=== PATIENT | female | born 2000 | race Caucasian/White ===

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

== ENCOUNTER → 2019-04-05 | Outpatient (REF) | payer BC ==
[~2019-04-05] MED LIST: DOXY100C37 PO
[2019-04-05 13:20] LABS: HEMATOCRIT 38.7 % (36.0-47.0); HEMOGLOBIN 12.7 g/dl (12.0-15.5); MEAN CORPUSCULAR HEMOGLOBIN 27.2 pg (27.0-33.0); MEAN CORPUSCULAR HGB CONC 32.8 g/dl (32.0-36.5); MEAN CORPUSCULAR VOLUME 82.9 fl (80.0-96.0); PLATELET COUNT, AUTOMATED 370 10^3/uL (150-450); RED BLOOD COUNT 4.67 10^6/uL (4.00-5.40); WHITE BLOOD COUNT 6.8 10^3/uL (4.0-10.0)
[2019-04-05 13:58] LABS: HCG, SERUM QUANTITATIVE 55208 MIU/ML
[2019-04-06 09:26] LABS: RUBELLA IgG QUALITATIVE IMMUNE (IMMUNE)
[2019-04-06 09:54] LABS: HEPATITIS C VIRUS ABY INDEX < 0.0 INDEX (<0.8)
[2019-04-06 09:55] LABS: HIV 1&2 SCREEN CENTAUR NEGATIVE (NEGATIVE)
== END ==
LOC: M LAB REF 12:16
PROVIDERS: ATTEND Obstetrics & Gynecology
DX: Z32.01 Encounter for pregnancy test, result positive (principal)

== ENCOUNTER → 2019-04-11 | Outpatient (CLI) | payer BC ==
--- NOTE | 2019-04-11 08:52 | REP ---
First trimester obstetric ultrasound for dating and viability: There is a single intrauterine gestational sac with a pole. The heart rate is 179 beats per minute. The pole crown-rump length is 1.4 cm. This corresponds to a gestational age of 7 weeks 5 days/[facility] 11/23/2019. Gestational age by LMP is 9 weeks 0 days/[facility] 11/14/2019. There is no subchorionic hematoma. The maternal adnexa and cul-de-sac demonstrate a right ovarian cyst, likely a corpus luteum. No free fluid in the pelvis. Electronically Signed by Waldemar Schmitt MD 04/11/2019 08:43 A
== END ==
LOC: M RAD 07:29
PROVIDERS: ATTEND Obstetrics & Gynecology
DX: O36.80X0 Pregnancy with inconclusive fetal viability, not applicable or unspecified (principal); Z36.89 Encounter for other specified antenatal screening; Z3A.01 Less than 8 weeks gestation of pregnancy

== ENCOUNTER → 2019-06-20 | Outpatient (CLI) | payer OTHER | LOC: M LAB 09:11 | PROVIDERS: ATTEND Advanced Practice Midwife | DX: Z34.01 Encounter for supervision of normal first pregnancy, first trimester (principal) ==

== ENCOUNTER → 2019-06-28 | Outpatient (CLI) | payer OTHER ==
--- NOTE | 2019-06-29 03:03 | REP ---
Clinical: Anatomical evaluation. Comparison: 04/11/2019 . Findings: Examination demonstrates a single live intrauterine in variable presentation. motion is identified by technologist. Placenta is noted posterior and grade I without evidence for placenta previa or abruption. Amniotic fluid volume is normal. Cervix measures 3.9 cm in length and appears closed. No evidence for nuchal cord. Gestational age by first US 18 weeks 6 days with [facility] 11/23/2019 . Gestational age by current measurements 18 weeks 5 days' with [facility] 11/24/2019 . FHR equals 161 beats per minute. BPD 4.2 cm 18 weeks 1 day HC 15.6 cm 18 weeks 3 days AC 13.3 cm 18 weeks 5 days FL 3.1 cm 19 weeks 3 days HL 3.1 cm 20 weeks 1 day HC/AC ratio 1.17 Estimated weight 269 grams ( 55th percentile). Anatomical assessment demonstrates normal structures including cranium, choroid plexus, cavum, cerebellum/posterior fossa, facial features, lungs, cardiac ventricular outflow tracts, diaphragm, stomach, cord insertion/three-vessel cord, kidneys/bladder, spine, and extremities. Impression: Single live intrauterine in variable presentation demonstrating appropriate estimated weight and growth. Limited evaluation of the heart. Remainder of the anatomical assessment is complete and normal.
== END ==
LOC: M WHC 08:01
PROVIDERS: ATTEND Advanced Practice Midwife
DX: Z36.89 Encounter for other specified antenatal screening (principal); Z3A.18 18 weeks gestation of pregnancy

== ENCOUNTER → 2019-08-05 | Outpatient (CLI) | payer OTHER ==
[~2019-08-05] MED LIST changes: +PRENTAB9 PO
--- NOTE | 2019-08-05 09:33 | REP ---
Clinical: Anatomical evaluation. Comparison: 06/28/2019 . Findings: Examination demonstrates a single live intrauterine in breech presentation. motion is identified by technologist. Placenta is noted posterior and grade I without evidence for placenta previa or abruption. Amniotic fluid volume is normal. Cervix measures 3.7 cm in length and appears closed. No evidence for nuchal cord. Gestational age by first US 24 weeks 2 days with [facility] 11/23/2019. Gestational age by current measurements 23 weeks 6 days with [facility] 11/26/2019 . FHR equals 135 beats per minute. Estimated weight 673 grams ( 44th percentile). Anatomical assessment demonstrates normal structures including cranium, four-chamber heart/ventricular outflow tracts, diaphragm, stomach, cord insertion/three-vessel cord, kidneys/bladder, and spine. Echogenic focus within the right cardiac ventricle likely prominent chordae tendineae. Impression: 1. Single live intrauterine in breech presentation demonstrating appropriate interval growth. 2. Echogenic focus in the right cardiac ventricle likely prominent chordae tendineae. Remainder of the anatomical assessment is complete and normal.
== END ==
LOC: M WHC 08:29
PROVIDERS: ATTEND Advanced Practice Midwife
DX: O32.1XX0 Maternal care for breech presentation, not applicable or unspecified (principal); Z36.2 Encounter for other antenatal screening follow-up; Z3A.24 24 weeks gestation of pregnancy

== ENCOUNTER → 2019-08-16 | Outpatient (REF) | payer OTHER ==
[~2019-08-16] MED LIST changes: -PRENTAB9 PO
[2019-08-16 11:58] LABS: HEMATOCRIT 36.2 % (36.0-47.0); HEMOGLOBIN 11.5 g/dl (12.0-15.5); MEAN CORPUSCULAR HEMOGLOBIN 27.2 pg (27.0-33.0); MEAN CORPUSCULAR HGB CONC 31.8 g/dl (32.0-36.5); MEAN CORPUSCULAR VOLUME 85.6 fl (80.0-96.0); PLATELET COUNT, AUTOMATED 343 10^3/uL (150-450); RED BLOOD COUNT 4.23 10^6/uL (4.00-5.40); WHITE BLOOD COUNT 9.5 10^3/uL (4.0-10.0)
== END ==
LOC: M PLALAB 08:23
PROVIDERS: ATTEND Advanced Practice Midwife
DX: Z34.02 Encounter for supervision of normal first pregnancy, second trimester (principal)

== ENCOUNTER 2019-10-16 22:10 | Outpatient (CLI) | payer OTHER ==
[~2019-10-16] VITALS: Ht 165.1 cm; Wt 95.4 kg
[2019-10-16 22:30] VITALS: BP 125/71
[2019-10-16] MEDS ORDERED: ACETAMINOPHEN 500 MG TAB PO ONE (22:45)
[2019-10-16 23:39] LABS: AMORPHOUS SEDIMENT SMALL (NEGATIVE); APPEARANCE, URINE HAZY (CLEAR); BACTERIA, URINE AUTO 1+ (NEGATIVE); BILIRUBIN, URINE AUTO NEGATIVE (NEGATIVE); BLOOD, URINE BLOOD NEGATIVE (NEGATIVE); COLOR, URINE YELLOW (YELLOW); GLUCOSE, URINE (UA) AUTO NEGATIVE (NEGATIVE); KETONE, URINE AUTO NEGATIVE (NEGATIVE); LEUKOCYTE ESTERASE, URINE AUTO TRACE (NEGATIVE); MUCUS, URINE SMALL (NEGATIVE); NITRITE, URINE AUTO NEGATIVE (NEGATIVE); PROTEIN, URINE AUTO 1+ mg/dL (NEGATIVE); RBC, URINE AUTO 4 /HPF (0-3); SPECIFIC GRAVITY URINE AUTO 1.011 (1.002-1.035); SQUAMOUS EPITHELIAL CELL UR AU 2 /HPF (0-6); TRANSITIONAL EPITHELIAL AUTO 1 /HPF; WBC, URINE AUTO 22 /HPF (0-3)
[2019-10-16] MEDS ORDERED: oxyCODONE 5MG TAB As Ordered ONE (23:58)
[2019-10-17] MEDS ORDERED: oxyCODONE 5MG TAB PO ONE
[2019-10-17 01:13] VITALS: BP 101/60
== END 2019-10-17 01:40 | disposition home or self-care (01) ==
LOC: M LDO 22:10
PROVIDERS: ATTEND Specialist
DX: O36.8130 Decreased fetal movements, third trimester, not applicable or unspecified (principal); Z3A.34 34 weeks gestation of pregnancy; R10.9 Unspecified abdominal pain

== ENCOUNTER → 2019-10-31 | Outpatient (REF) | payer OTHER ==
[~2019-10-31] MED LIST changes: +PRENTAB9 PO
== END ==
LOC: M SFHCLERA 17:05
PROVIDERS: ATTEND Specialist
DX: Z34.03 Encounter for supervision of normal first pregnancy, third trimester (principal); Z3A.00 Weeks of gestation of pregnancy not specified

== ENCOUNTER 2019-11-30 18:02 | Inpatient (IN) | payer OTHER ==
[~2019-11-30] VITALS: Ht 167.6 cm; Wt 96.5 kg
[~2019-11-30 18:02] MED LIST changes: -PRENTAB9 PO
[2019-11-30] MEDS ORDERED: PRENTAB9 PO (18:13)
[2019-11-30] MEDS ORDERED: miSOPROStol 50 MCG 1/2 TAB (S0191) PO ONE (18:45)
[2019-11-30 19:08] VITALS: BP 119/67
--- NOTE | 2019-11-30 19:14 | HPEPDOC ---
Text Note Date of Service The patient was seen on 11/30/19. NOTE History & Physical S: 19 y/o @41 0/7 weeks gestation with an EDC of 11/23/2019 confirmed by 1 st trimester ultrasound. Pt presents to L&D for IOL. Pt denies contractions, LOF, or vaginal bleeding. Fetus is active. PNCare: initiated in 1st trimester and adequate. PNCourse: uncomplicated. OBHx: 1. Current OBLabs: A positive, negative antibody screen, HIV-, HepBsAg-, HepC-, RPR non-reactive, Rubella immune, GC/CT-, Urine c/s-, GDS 120, GBS-. Past Medical Hx: non-contributory. Past Surgical Hx: tympanostomy. Family Hx: diabetes. Social Hx: Pt is single, FOB involved and supportive at the bedside, non-smoker, denies ETOH, denies drug use, denies hx of STDs, denies hx of abuse. Allergies: NKDA. Current medications: PNV. O: BP 116/69 P 95 RR 16 T 97.8F A+O x3, abdomen gravid. FHR 110 moderate variability + accels no decels, no contractions. SVE 1/50/-3, moderate, posterior. Cephalic presentation. EFW 7-7.5 lbs A: IUP @ 41 0/7 weeks, FHR category I P: Admit to L&D for IOL. Risks, benefits, alternatives reviewed to IOL. All questions answered. Pt desires IOL. Regular diet, OOB ad alhaji, saline lock, and routine labs. Misoprostol for cervical ripening. Verbally consented for emergency surgery and blood products PRN. Anticipate ripening and labor. ANETA SHUKLA CNM Nov 30, 2019 19:14
[2019-11-30 20:22] VITALS: BP 98/56
[2019-11-30 20:29] LABS: HEMATOCRIT 33.7 % (36.0-47.0); HEMOGLOBIN 10.2 g/dl (12.0-15.5); MEAN CORPUSCULAR HEMOGLOBIN 23.2 pg (27.0-33.0); MEAN CORPUSCULAR HGB CONC 30.3 g/dl (32.0-36.5); MEAN CORPUSCULAR VOLUME 76.8 fl (80.0-96.0); PLATELET COUNT, AUTOMATED 374 10^3/uL (150-450); RED BLOOD COUNT 4.39 10^6/uL (4.00-5.40); WHITE BLOOD COUNT 10.3 10^3/uL (4.0-10.0)
[2019-11-30 21:25] VITALS: BP 99/51
[2019-11-30 22:21] VITALS: BP 101/53
[2019-11-30] MEDS ORDERED: miSOPROStol 50 MCG 1/2 TAB (S0191) PO SCH (22:45)
[2019-11-30] MEDS ORDERED: BUTORPHANOL 2 MG/ML INJ (J0595) IV ONE (23:00)
[2019-11-30] MEDS ORDERED: PROMETHAZINE INJ 25 MG/ML VIAL (J2550) IV ONE (23:00)
[2019-11-30 23:50] VITALS: BP 114/59
[2019-12-01] VITALS (42 sets, daily range): BP systolic 95–145; BP diastolic 50–75
[2019-12-01] MEDS ORDERED: FENTANYL 2MCG/ML ROPIVACAINE 0.2% IN 0.9% NACL 100ML IVBAG As Ordered ONE (04:26)
--- NOTE | 2019-12-01 04:27 | IPNPDOC ---
Obstetrical Progress Note Date of Service Dec 01, 2019 Subjective Pt reporting painful contractions, requesting an epidural. Objective Vital Signs Date Time Temp Pulse Resp B/P (MAP) Pulse Ox O2 Delivery O2 Flow Rate FiO2 12/01/19 03:07 82 18 104/51 (68) 12/01/19 00:37 98.2 12/01/19 00:30 Room Air Assessment Heart Rate (FHR): 125 Variability: Moderate Accelerations: Positive Decelerations: Early Tocometer Contractions: Yes Frequency: regular, every 1-3 min. Strength: palpated as moderate Sterile Vaginal Examination Dilation: 4 cm Effacement (%): 90% Station: -3 Cervical Consistency: Soft Cervical Position: Posterior Postion/Presentation: Cephalic presentation Assessment and Plan Additional Comments A: IUP at 41 1/7 weeks, FHR category I, active labor P: Start pitocin for labor induction. Consult anesthesia for labor epidural. Anticipate . ANETA SHUKLA CNM Dec 01, 2019 04:27
[2019-12-01] MEDS ORDERED: LR 1,000 ML IV SCH (04:28)
[2019-12-01] MEDS ORDERED: OXYTOCIN DRIP 30 UNITS in IV 1 EA IV SCH (04:30)
[2019-12-01] MEDS ORDERED: NALOXONE INJ 0.4MG/1ML VIAL (J2310 PER 1MG) IV PRN (05:17)
[2019-12-01] MEDS ORDERED: EPIDURAL/PCA KEYS XX PRN (05:17)
[2019-12-01] MEDS ORDERED: FENTANYL/ROPIVACAINE/NACL BAG 100 ML EPIDURAL SCH (05:17)
[2019-12-01] MEDS ORDERED: REFRIGERATOR IV KEYS XX PRN (05:17)
[2019-12-01] MEDS ORDERED: LACTATED RINGER'S 1000 ML IV PRN (05:17)
[2019-12-01] MEDS ORDERED: EPIDURAL COMMENT XX SCH (05:17)
[2019-12-01] MEDS ORDERED: diphenhydrAMINE 50MG/ML VIAL (J1200) IV PRN (05:17)
[2019-12-01] MEDS ORDERED: ONDANSETRON 4MG/2ML VIAL IV PRN ×2 (05:17→11:45)
[2019-12-01] MEDS ORDERED: ePHEDrine SULFATE 25 MG/5 ML(5MG/ML) SYRINGE IV PRN (05:17)
[2019-12-01] MEDS: PRENATAL VITAMINS CHEWABLE TABLET PO SCH (09:00)
[2019-12-01] MEDS ORDERED: DIBUCAINE 1% OINTMENT 30GM TOP PRN (11:45)
[2019-12-01] MEDS ORDERED: LIDOCAINE 1% MDV 20ML VIAL INFIL ONE (11:45)
[2019-12-01] MEDS ORDERED: IBUPROFEN 800 MG TAB PO PRN (11:45)
[2019-12-01] MEDS ORDERED: MEASLES,MUMPS,RUBELLA VACCINE INJ (MMR-II) (90707) SC SCH (11:45)
[2019-12-01] MEDS ORDERED: OXYTOCIN DRIP 30 UNITS in IV 1 EA IV ONE (11:45)
[2019-12-01] MEDS ORDERED: IBUPROFEN 600MG TAB PO PRN (11:45)
[2019-12-01] MEDS ORDERED: DOCUSATE SODIUM 100 MG CAP PO PRN (11:45)
[2019-12-01] MEDS ORDERED: ACETAMINOPHEN TAB 650MG DOSE (2X325MG) PO PRN (11:45)
[2019-12-01] MEDS ORDERED: RHOGAM 300 MCG (1500 IU) INJ (J2790) IM SCH (11:45)
[2019-12-01] MEDS ORDERED: METHYLERGONOVINE MALEATE 0.2 MG TAB PO PRN (11:45)
--- NOTE | 2019-12-01 11:50 | DNPDOC ---
[facility] Delivery Note Delivery Note DATE OF DELIVERY: December 01, 2019 PREDELIVERY DIAGNOSIS: 41-1/7 weeks' gestation, labor induction. POST DELIVERY DIAGNOSIS: Delivered. PROCEDURE: Spontaneous vaginal delivery LICENSED MENTAL HEALTH PROFESSIONAL: Dr. Barb Ibarra MD ANESTHESIA: epidural. ESTIMATED BLOOD LOSS: 300 mL. FINDINGS: 7 pound 6 ounce female , Score 9/9, nuchal cord times 1. DELIVERY SUMMARY: Patient is a 19-year-old 1 now para 1 who was admitted to labor and delivery for induction at 41 1/7 weeks She had Misoprostol, followed by Pitocin. After a 50 minute second stage of labor she had a spontaneous vaginal delivery of a 7 lb. 6 oz. female . Nuchal cord x 1 reduced manually. Shoulders delivered with ease. The infant was handed to the mother and cried quickly. The cord was clamped and cut. The placenta delivered spontaneously and appeared intact. A first degree perineal laceration was repaired with 2-O Chromic under local anesthesia in the usual fashion. Sponge and needle counts correct. BARB IBARRA MD Dec 01, 2019 11:50
[2019-12-02 06:00] VITALS: BP 109/62
--- NOTE | 2019-12-02 06:57 | IPNPDOC ---
Progress Note Date of Service: Dec 02, 2019 Progress Note SUBJECT: pt is a 19-year-old 1 now Para 1 status post uncomplicated spontaneous vaginal [id number]) with post vaginal laceration and repair, doing well day # 1. She has been ambulating, voiding spontaneously without issue and tolerating regular diet. Breast feeding without issue. Reports lochia is like a normal period. Patient is ambulating well. [Reports some cramping with . Denies any pain. Voiding and difficulty. OBJECTIVE: VITAL SIGNS: Within normal limits, afebrile. Alert and oriented times three. Breath sounds clear to auscultation. Heart rate: Regular rate and rhythm, no murmurs, rubs or gallops. Abdomen: Fundus firm at U-2. Soft, NTTP. [Minimal] lochia. ASSESSMENT: Pt is a 19-year-old 1 now Para 1] status post uncomplicated spontaneous vaginal delivery PPD#1 PLAN: Discharge to home tomorrow. Tylenol and Motrin for pain. Encourage breast feeding and ambulation. Routine PP visit in 6 weeks in clinic. VS, I&O, 24H, Fishbone Vital Signs/I&O Vital Signs Date Time Temp Pulse Resp B/P (MAP) Pulse Ox O2 Delivery O2 Flow Rate FiO2 12/01/19 18:00 98.8 110 17 118/70 (86) 99 Room Air I&O- Last 24 Hours up to 6 AM 12/02/19 06:00 Intake Total 4174.8 ml Output Total 1950 ml Balance 2224.8 ml BARB IBARRA MD Dec 02, 2019 06:57
[2019-12-02] MEDS: ACETAMINOPHEN 500 MG TAB PO PRN ×2 (07:44→21:05)
[2019-12-02] MEDS: PRENATAL VITAMINS CHEWABLE TABLET PO SCH (07:44)
[2019-12-02 18:19] VITALS: BP 103/61
[2019-12-03 06:15] VITALS: BP 136/80
[2019-12-03] MEDS: PRENATAL VITAMINS CHEWABLE TABLET PO SCH (09:52)
[2019-12-03 18:02] VITALS: BP 163/81
[2019-12-04 05:53] VITALS: BP 108/55
[2019-12-04] MEDS: PRENATAL VITAMINS CHEWABLE TABLET PO SCH (08:12)
--- NOTE | 2019-12-04 14:02 | IPNPDOC ---
Progress Note Date of Service: Dec 04, 2019 Day#: 3 Progress Note PPD3 SUBJECT: Alphonse is a 19-year-old 1 now Para 1 status post unco mplicated spontaneous vaginal delivery, doing well day # 3. She has been ambulating, voiding spontaneously without issue and tolerating regular diet. Bottle feeding without issue. Reports lochia is like a normal period. Baby was kept for bili light but ok for discharge today. OBJECTIVE: VITAL SIGNS: Within normal limits, afebrile. Alert and oriented times three. Abdomen: Fundus firm at U-2. Soft, NTTP. Extremities: no pain with palpation of calves ASSESSMENT: Pt is a 19-year-old 1 now Para 1 status post uncomplicated spontaneous vaginal delivery PPD#3. Hemodynamically stable, no e/o infection. Ready for discharge. PLAN: Discharge to home today Tylenol and Motrin for pain. Encourage breast feeding and ambulation. Routine PP visit in 6 weeks in clinic Undecided on contraception Effie Mcnulty MD VS, I&O, 24H, Fishbone Vital Signs/I&O Vital Signs Date Time Temp Pulse Resp B/P (MAP) Pulse Ox O2 Delivery O2 Flow Rate FiO2 12/04/19 05:53 98.6 72 16 108/55 (72) 99 Room Air Effie Mcnulty MD Dec 04, 2019 14:02
--- NOTE | 2019-12-04 14:06 | DS.PDOC ---
Discharge Summary General Date of Admission Nov 30, 2019 at 18:02 Date of Discharge Dec 04, 2019 Discharge Summary PROCEDURES PERFORMED DURING STAY: induction of labor, spontaneous vaginal delivery ADMITTING DIAGNOSES: 1. IOL at 41wk for LTG DISCHARGE DIAGNOSES: 1. IOL at 41wk for LTG, delivered COMPLICATIONS/CHIEF COMPLAINT: Induction. HISTORY OF PRESENT ILLNESS/HOSPITAL COURSE: Pt is a 19-year-old 1 now Para 1 status post uncomplicated spontaneous vaginal delivery PPD#3. Hemodynamically stable, no e/o infection. Ready for disc harge. DISCHARGE MEDICATIONS: Please see below. ALLERGIES: Please see below. PHYSICAL EXAMINATION ON DISCHARGE: VITAL SIGNS: Within normal limits, afebrile. Alert and oriented times three. Abdomen: Fundus firm at U-2. Soft, NTTP. Extremities: no pain with palpation of calves LABORATORY DATA: Please see below. ACTIVITY: As tolerated, vaginal rest 6 weeks DIET: regular DISCHARGE PLAN: discharge to home with 6 week PP visit DISPOSITION: Home, Self-Care. DISCHARGE INSTRUCTIONS: -Contact physician for heavy vaginal bleeding, fevers/chills, foul smelling discharge, depression, anything else concerning DISCHARGE CONDITION: Stable TIME SPENT ON DISCHARGE: Greater than 20 minutes. Effie Mcnulty MD Vital Signs/I&Os Vital Signs Date Time Temp Pulse Resp B/P (MAP) Pulse Ox O2 Delivery O2 Flow Rate FiO2 12/04/19 05:53 98.6 72 16 108/55 (72) 99 Room Air Discharge Medications Scheduled No.137/Iron/Folic Acd ( Vitamin Tablet) 1 Each Tablet, 1 TAB PO DAILY, (Reported) Allergies Coded Allergies: No Known Allergies (Verified Allergy, Unknown, 10/16/19) Effie Mcnulty MD Dec 04, 2019 14:06
== END 2019-12-04 13:35 | disposition home or self-care (01) | DRG 560 ==
LOC: M LDI 18:02 → M OBS 12-01 13:47
PROVIDERS: ADMIT Advanced Practice Midwife; ATTEND Specialist
PROC: 3E0P7GC Introduction of Other Therapeutic Substance into Female Reproductive, Via Natural or Artificial Opening (ICD-10-PCS; 2019-11-30)
PROC: 10E0XZZ Delivery of Products of Conception, External Approach (ICD-10-PCS; principal; 2019-12-01)
PROC: 0HQ9XZZ Repair Perineum Skin, External Approach (ICD-10-PCS; 2019-12-01)
DX: O48.0 Post-term pregnancy (principal); O69.82X0 Labor and delivery complicated by other cord entanglement, without compression, not applicable or unspecified; Z3A.41 41 weeks gestation of pregnancy; Z37.0 Single live birth; O70.0 First degree perineal laceration during delivery

== ENCOUNTER 2020-09-18 08:55 | Day surgery (SDC) | payer OTHER ==
[~2020-09-18] VITALS: Ht 167.6 cm; Wt 90.3 kg
[~2020-09-18 08:55] MED LIST changes: -DOXY100C37 PO; +DOXY1CAP62 PO; +PRENTAB9 PO
[2020-09-18] MEDS ORDERED: LR 1,000 ML IV SCH ×3 (09:05→10:50)
[2020-09-18] MEDS ORDERED: DOXYCYCLINE HYCLATE 100 MG in D5W MINI-BAG PLUS 100 ML IV ONE (09:05)
[2020-09-18 09:42] LABS: HEMATOCRIT 36.8 % (36.0-47.0); HEMOGLOBIN 11.8 g/dl (12.0-15.5); MEAN CORPUSCULAR HEMOGLOBIN 25.2 pg (27.0-33.0); MEAN CORPUSCULAR HGB CONC 32.1 g/dl (32.0-36.5); MEAN CORPUSCULAR VOLUME 78.5 fl (80.0-96.0); PLATELET COUNT, AUTOMATED 350 10^3/uL (150-450); RED BLOOD COUNT 4.69 10^6/uL (4.00-5.40)
[2020-09-18] MEDS ORDERED: fentaNYL 100 MCG/2 ML INJECTION (J3010) As Ordered ONE (10:08)
[2020-09-18] MEDS ORDERED: MIDAZOLAM INJ 2MG/2ML VIAL (J2250 PER 1MG) As Ordered ONE (10:08)
[2020-09-18] MEDS ORDERED: KETOROLAC 60MG 2ML VIAL As Ordered ONE (10:10)
[2020-09-18] MEDS ORDERED: ACETAMINOPHEN 1000MG 100ML IV BTL (OFIRMEV) (J0131 PER 10MG) As Ordered ONE (10:10)
[2020-09-18] MEDS ORDERED: ONDANSETRON 4MG/2ML VIAL As Ordered ONE (10:10)
[2020-09-18] MEDS ORDERED: dexameTHASONE 4 MG/ML 1ML VIAL (J1100 PER 1MG) As Ordered ONE (10:10)
[2020-09-18] MEDS ORDERED: SILVER NITRATE APPLICATOR As Ordered ONE (10:15)
--- NOTE | 2020-09-18 10:21 | ROOPDOC ---
[facility] Report Of Operation Report of Operation DATE OF PROCEDURE: 09/19/2019 PREPROCEDURE DIAGNOSES: First trimester miscarriage, missed . POSTPROCEDURE DIAGNOSES: Same. PROCEDURE: Suction D&C. SURGEON: Landon Vaughn DO FACOG MEDICAL ANTHROPOLOGIST: none ANESTHESIA: General via LMA ESTIMATED BLOOD LOSS: Approximately 200 mL. IV FLUIDS REPLACED: 200 mL LR UOP: in and out cath, 25 mL COMPLICATIONS: none. SPECIMENS: products of conception, intrauterine tissue. PREOPERATIVE / PROPHYLACTIC ANTIBIOTIC: Doxycycline 100mg IV x1. INTRAOPERATIVE FINDINGS/REMARKS: Uterus sounded to 9 to 10 cm. Tissue obtained from the intrauterine cavity was grossly consistent with products of conception. DESCRIPTION OF PROCEDURE: The patient was counseled, consented on the risks, benefits, indications and alternatives procedure. Informed consent was obtained. She was taken to the operating room with an IV running and placed on the operating table in dorsal supine position. Gen. anesthesia was administered and the airway was secured without any difficulty. She was prepared and draped in the normal sterile fashion. She was placed in the high lithotomy position. A time out was performed per protocol. The bladder was drained with a sterile in and out catheter. Sterile speculum was placed with good visualization of the cervix. The cervix was grasped with a single-tooth tenaculum at the anterior lip and downward traction was applied. The cervix was sequentially dilated with Bakari dilators up to a #20. A size 9 curved Vacurette was placed trans-cervically into the intrauterine cavity. Suction was activated. Tissue and blood return was consistent with products of conception. After removal of the Vacurette, a sharp curettage was performed with minimal tissue and blood return. Minimal bleeding from the cervical os was noted. The patient's vitals were normal and stable. The decision was made to conclude the procedure. Single-tooth tenaculum was removed from the cervix and the tenaculum sites were noted to be hemostatic. Again, minimal bleeding from the cervical os was noted. All instruments were removed from the vagina. Sponge and instrument counts were correct per protocol. The patient was transferred to the PACU in good and stable condition. Landon Vaughn DO FACOG. LANDON VAUGHN DO Sep 18, 2020 10:21
[2020-09-18] MEDS ORDERED: oxyCODONE 5MG TAB PO PRN (10:45)
[2020-09-18] MEDS ORDERED: ONDANSETRON 4MG/2ML VIAL IV PRN (10:45)
[2020-09-18] MEDS ORDERED: fentaNYL 100 MCG/2 ML INJECTION (J3010) IV PRN (10:45)
[2020-09-18] MEDS ORDERED: DOXYCYCLINE HYCLATE 100MG TABLET PO ONE (10:50)
[2020-09-18 12:10] VITALS: BP 121/61
== END 2020-09-18 12:10 | disposition home or self-care (01) ==
LOC: M SDC 08:55
PROVIDERS: ATTEND Obstetrics & Gynecology
DX: O02.1 Missed abortion (principal)
CPT/HCPCS: 36415; 59820; 85027; 86850; 86900; 86901; 88305; J0131; J1100; J1885; J2250; J2405; J3010; U0002

== ENCOUNTER → 2020-11-14 | Outpatient (REF) ==
[2020-11-14 13:59] LABS: RSV AMPLIFICATION NEGATIVE (NEGATIVE)
== END ==
LOC: M LABSMTC 10:46
PROVIDERS: ATTEND Pediatrics
DX: Z20.822 Contact with and (suspected) exposure to COVID-19 (principal)

== ENCOUNTER → 2021-02-12 | Outpatient (REF) ==
[~2021-02-12] MED LIST changes: +ACET-841 PO; +DOXY-443 PO; -DOXY1CAP62 PO
== END ==
LOC: M EMP 08:23
PROVIDERS: ATTEND Family Medicine
DX: Z20.822 Contact with and (suspected) exposure to COVID-19 (principal)

== ENCOUNTER 2021-02-18 06:10 | Emergency (ER) | payer OTHER ==
[~2021-02-18] VITALS: Ht 165.1 cm; Wt 88.9 kg
[~2021-02-18 06:10] MED LIST changes: -ACET-841 PO
[2021-02-18] MEDS ORDERED: ACET-841 PO (06:18)
[2021-02-18 08:46] LABS: BASO % 0.2 % (0.0-1.0); EOS % 0.1 % (0.0-3.0); HEMOGLOBIN 11.4 g/dl (12.0-15.5); LYMPH # 1.1 10^3/uL (1.5-5.0); LYMPH % 11.9 % (24.0-44.0); MEAN CORPUSCULAR HEMOGLOBIN 23.8 pg (27.0-33.0); MEAN CORPUSCULAR HGB CONC 31.7 g/dl (32.0-36.5); MONO # 0.8 10^3/uL (0.0-0.8); MONO % 8.8 % (2.0-8.0); NEUTROPHILS # 6.9 10^3/uL (1.5-8.5); NEUTROPHILS % 77.9 % (36.0-66.0); PLATELET COUNT, AUTOMATED 351 10^3/uL (150-450); WHITE BLOOD COUNT 8.9 10^3/uL (4.0-10.0)
--- NOTE | 2021-02-18 09:02 | REP ---
INDICATION: fever + covid COMPARISON: 04/08/2015 TECHNIQUE: Portable AP view of the chest FINDINGS: The mediastinum and cardiac silhouette are stable and within normal limits for portable technique. The lung luna are clear without acute consolidation, effusion, or pneumothorax. Skeletal structures are intact. IMPRESSION: No acute cardiopulmonary process appreciated. <Electronically signed by Camden Pope > 02/18/21 [id number]
[2021-02-18 09:39] VITALS: BP 131/70
== END 2021-02-18 09:40 | disposition home or self-care (01) ==
LOC: M ED 06:10
DX: U07.1 COVID-19 (principal)

== ENCOUNTER → 2022-08-18 | Outpatient (REF) | payer OTHER, MEDICAID ==
[~2022-08-18] MED LIST changes: +ACET-841 PO
[2022-08-18 17:58] LABS: BASO # 0.1 10^3/uL (0.0-0.2); BASO % 0.8 % (0.0-1.0); EOS # 0.1 10^3/uL (0.0-0.5); EOS % 1.9 % (0.0-3.0); HEMATOCRIT 40.7 % (36.0-47.0); LYMPH # 2.3 10^3/uL (1.5-5.0); LYMPH % 36.1 % (24.0-44.0); MEAN CORPUSCULAR HEMOGLOBIN 26.5 pg (27.0-33.0); MEAN CORPUSCULAR HGB CONC 31.9 g/dl (32.0-36.5); MEAN CORPUSCULAR VOLUME 83.1 fl (80.0-96.0); MONO # 0.5 10^3/uL (0.0-0.8); NEUTROPHILS # 3.4 10^3/uL (1.5-8.5); NEUTROPHILS % 52.1 % (36.0-66.0); PLATELET COUNT, AUTOMATED 344 10^3/uL (150-450); WHITE BLOOD COUNT 6.5 10^3/uL (4.0-10.0)
[2022-08-18 18:03] LABS: CHOLESTEROL RISK RATIO 3.38 (<5); HDL CHOLESTEROL 37.2 MG/DL (>40); LDL CHOLESTEROL 71.2 MG/DL (<100); NON-HDL-C 88.8 MG/DL; PERCENT SATURATION 12.7 % (13.2-45.0)
[2022-08-18 18:05] LABS: THYROID STIMULATING HORMONE 4.606 uIU/ML (0.55-4.78)
[2022-08-18 18:06] LABS: FERRITIN 13.3 NG/ML (7.3-270.7); TOTAL 25(OH) VITAMIN D 15.5 NG/ML (20.0-100.0)
[2022-08-18 18:12] LABS: HEMOGLOBIN A1c 4.8 % (4.0-6.0)
== END ==
LOC: M LAB REF 17:29
PROVIDERS: ATTEND Physician Assistant
DX: D50.9 Iron deficiency anemia, unspecified (principal); E55.9 Vitamin D deficiency, unspecified; Z13.228 Encounter for screening for other metabolic disorders

== ENCOUNTER → 2023-02-03 | Outpatient (REF) | payer OTHER, MEDICAID | LOC: M LAB REF 16:07 | PROVIDERS: ATTEND Physician Assistant Medical | DX: B34.9 Viral infection, unspecified (principal) ==

== ENCOUNTER → 2025-01-19 | Outpatient (CLI) | payer OTHER ==
[~2025-01-19] MED LIST changes: +DOXY-441 PO; -DOXY-443 PO
== END ==
LOC: M RAD 13:52
PROVIDERS: ATTEND Physician Assistant
DX: S69.92XA Unspecified injury of left wrist, hand and finger(s), initial encounter (principal); X58.XXXA Exposure to other specified factors, initial encounter; Y92.9 Unspecified place or not applicable; Y93.9 Activity, unspecified; Y99.9 Unspecified external cause status